=== PATIENT | female | born 1930 | race Caucasian/White ===

== ENCOUNTER 2016-08-24 06:01 | Day surgery (SDC) | payer OTHER, BC ==
[~2016-08-24] VITALS: Ht 152.4 cm; Wt 59.0 kg
--- NOTE | ~2016-08-24 | O ---
[facility] [place] [address] OPERATIVE REPORT Name: RAUDEL HOUSER Room #: 150-9 [facility]#: [id number] Admission: 08/24/16 Attend Phys: Delfino Bales MD Discharge: Date of : 30 Report #: [id number] THIS REPORT FOR: //name// CC: SWAPNA Bales DATE OF SERVICE: 08/24/2016 LOT TECHNICIAN: None. PREOPERATIVE DIAGNOSIS: Bilateral lower lid entropion. POSTOPERATIVE DIAGNOSIS: Bilateral lower lid entropion. OPERATION PERFORMED: Bilateral lower lid entropion repair. ANESTHESIA: Local with IV sedation. COMPLICATIONS: None. INDICATIONS FOR PROCEDURE: This patient has bilateral lower lid entropion with chronic irritation and discharge. The current procedures are being undertaken in order to improve the patient's level of comfort and visual function. Informed consent was obtained to include but not limited to the loss of vision, bleeding, infection, scarring, failure to improve the problem and need for further surgery. DESCRIPTION OF OPERATION: The patient was taken to the operating room, where 2% Xylocaine with epinephrine mixed with equal parts of 0.75% Marcaine with Wydase was administered transcutaneously and transconjunctivally to each lower lid and lateral canthal area. The patient was then prepped and draped in the usual sterile fashion. A Gladys clamp was used to clamp the left lateral canthus, following which a sharp canthotomy and cantholysis were performed. Hemostasis was achieved with a monopolar cautery, as it was throughout the case. A tarsal strip was prepared laterally, removing the lash bearing portion of the redundant lid margin and the redundant tarsal plate. A transconjunctival dissection was then undertaken just inferior to the lower border of the tarsal plate. The lower lid retractors were disinserted from the inferior border of the tarsal plate. The lower lid retractors were then advanced and reattached to the anterior surface of the tarsal plate with mattress 5-0 chromic sutures passed transconjunctivally and secured in the infraciliary margin. The tarsal strip was then secured laterally with 2 interrupted 5-0 Prolene sutures. The subcutaneous structures and the skin were then closed with multiple interrupted [facility] [address] [place] [address] OPERATIVE REPORT Name: RAUDEL HOUSER Room #: 150-9 [facility]#: [id number] Admission: 08/24/16 Attend Phys: Delfino Bales MD Discharge: Date of : 30 Report #: [id number] 6-0 plain gut sutures so the lateral canthal angle was sharply reformed. The wounds were then cleaned and dressed with ophthalmic antibiotic ointment. The patient was then transported to the recovery area, having tolerated the procedure well with no anesthetic or operative complications being noted. By: [id number] Delfion Bales MD /nt
[~2016-08-24 06:01] MED LIST: CALCIUM 500 +1 EAC5 PO; MULTIVITAMINS PO; OCUVITE SOFTGE1 EAC1 PO; PROBIOTIC1 EAC1 PO
[2016-08-24 13:15] VITALS: BP 148/82
== END 2016-08-24 15:30 | disposition home or self-care (01) ==
LOC: TBA 06:01 → OR 06:01 → TBA 06:02 → OR 09:32
DX: H02.005 Unspecified entropion of left lower eyelid (principal); H02.002 Unspecified entropion of right lower eyelid; H40.9 Unspecified glaucoma; Z98.41 Cataract extraction status, right eye; Z98.42 Cataract extraction status, left eye; Z96.1 Presence of intraocular lens; Z90.710 Acquired absence of both cervix and uterus; Z98.890 Other specified postprocedural states; Z85.820 Personal history of malignant melanoma of skin; Z90.49 Acquired absence of other specified parts of digestive tract; Z88.8 Allergy status to other drugs, medicaments and biological substances
CPT/HCPCS: 50010; 50101; 50386; 50398; 51636; 62110; 62850; 70005